=== PATIENT | female | born 1935 | race Caucasian/White ===

== ENCOUNTER 2018-11-18 16:36 | Emergency (ER) | payer MEDICARE ==
[~2018-11-18] VITALS: Ht 160 cm; Wt 81.6 kg
--- NOTE | 2018-11-18 16:40 | NUR ---
CHANCE FROM HOME FOR GLF; LT BUTTOCKS PAIN; PT AAOX2-3, PT ON MONITOR, VSS, NAD NOTED, PENDING MD KIMBLE
[2018-11-18] MEDS ORDERED: IV NS 0.9% 500 ML BAG IV ONE (17:00)
[2018-11-18] MEDS ORDERED: ACETAMINOPHEN ES 500 MG TABLET PO ONE (17:00)
[2018-11-18 17:07] LABS: BASOPHILS # (AUTO) 0.1 /CMM (0.0-0.2); BASOPHILS % (AUTO) 0.7 % (0.0-2.0); EOSINOPHILS % (AUTO) 0.7 % (0.0-6.0); HEMATOCRIT 37 % (33-45); HEMOGLOBIN 12.2 g/dL (11.5-14.8); LYMPHOCYTES # (AUTO) 0.8 /CMM (0.8-4.8); LYMPHOCYTES % (AUTO) 10.1 % (20.0-44.0); MEAN CORPUSCULAR HGB CONC 33 g/dl (31.0-36.0); MEAN CORPUSCULAR VOLUME 93 fL (82-100); MONOCYTES # (AUTO) 0.7 /CMM (0.1-1.30); MONOCYTES % (AUTO) 8.8 % (2.0-12.0); NEUTROPHILS # (AUTO) 6.6 /CMM (1.8-8.9); NEUTROPHILS % (AUTO) 79.7 % (43.0-81.0); PLATELET COUNT (AUTO) 229 /CMM (150-450); RED BLOOD CELL COUNT(AUTO) 4.01 MIL/uL (4.0-5.2); WHITE BLOOD COUNT (AUTO) 8.3 K/uL (4.3-11.0)
[2018-11-18] MEDS ORDERED: ACETAMINOPHEN ES 500 MG TABLET ONE (17:11)
[2018-11-18 17:16] LABS: CALCIUM, SERUM 8.7 mg/dL (8.5-10.1); CARBON DIOXIDE 25 mmol/L (21-32); CHLORIDE 103 mmol/L (98-107); CREATININE 1.1 mg/dL (0.6-1.3); GLUCOSE 113 mg/dL (74-106); POTASSIUM 4.1 mmol/L (3.5-5.1); SODIUM SERUM 137 mmol/L (136-145); UREA NITROGEN, BLOOD 43 mg/dL (7-18)
[2018-11-18] MEDS ORDERED: IV NS 0.9% 1,000 ML BAG IV ONE (18:30)
--- NOTE | 2018-11-18 19:24 | NUR ---
REPROT GIVEN TO CHARMAINE OMER FOR STACEY
[2018-11-18 19:55] VITALS: BP 135/76
--- NOTE | 2018-11-18 19:59 | NUR ---
Patient discharged to home in stable condition. Written and verbal after care instructions given. Patient verbalizes understanding of instruction.IV removed. Catheter intact and site benign. Pressure and 4x4 applied to site. No bleeding noted. pt leaving with family via private car.
== END 2018-11-18 19:58 | disposition home or self-care (01) ==
LOC: ER 16:36
DX: S51.812A Laceration without foreign body of left forearm, initial encounter (principal); S70.02XA Contusion of left hip, initial encounter; E86.0 Dehydration; R51 Headache; E03.9 Hypothyroidism, unspecified; E78.5 Hyperlipidemia, unspecified; W01.0XXA Fall on same level from slipping, tripping and stumbling without subsequent striking against object, initial encounter; Y93.01 Activity, walking, marching and hiking; Y92.89 Other specified places as the place of occurrence of the external cause; Y99.8 Other external cause status
CPT/HCPCS: 36415; 70450; 71045; 73503; 80048; 85025; 93005; 96360; 96361; 99284; J7030; J7040; 73502

== ENCOUNTER 2022-10-23 19:08 | Inpatient (IN) | payer BC, MEDICARE ==
[~2022-10-23] VITALS: Ht 165.1 cm; Wt 82.6 kg
[2022-10-23 20:12] LABS: BASOPHILS % (AUTO) 0.1 % (0.0-2.0); HEMATOCRIT 42 % (33-45); HEMOGLOBIN 13.5 g/dL (11.5-14.8); LYMPHOCYTES # (AUTO) 0.5 K/uL (0.8-4.8); LYMPHOCYTES % (AUTO) 4.8 % (20.0-44.0); MEAN CORPUSCULAR HGB CONC 32 g/dl (31.0-36.0); MEAN CORPUSCULAR VOLUME 92 fL (82-100); MONOCYTES # (AUTO) 0.7 K/uL (0.1-1.30); MONOCYTES % (AUTO) 7.1 % (2.0-12.0); NEUTROPHILS # (AUTO) 9.2 K/uL (1.8-8.9); PLATELET COUNT (AUTO) 207 K/uL (150-450); RED BLOOD CELL COUNT(AUTO) 4.55 MIL/uL (4.0-5.2); WHITE BLOOD COUNT (AUTO) 10.5 K/uL (4.3-11.0)
[2022-10-23 21:41] LABS: BILIRUBIN,URINE NEGATIVE (NEGATIVE); COLOR,URINE YELLOW (YELLOW); LEUKOCYTE ESTERASE ,URINE NEGATIVE (NEGATIVE); NITRITE, URINE NEGATIVE (NEGATIVE); PH,URINE 5.5 (5.0-8.0); PROTEIN,URINE 2+ mg/dl (NEGATIVE); UGLUCOSE NEGATIVE (NEGATIVE); UROBILINOGEN,URINE 0.2 EU/dL (0.2)
[2022-10-23 22:17] LABS: ALANINE AMINOTRANSFERASE 26 U/L (12-78); ALKALINE PHOSPHATASE 93 U/L (46-116); ASPARTATE AMINOTRANSFERASE 47 U/L (15-37); BILIRUBIN,TOTAL 0.7 mg/dL (0.2-1.0); CARBON DIOXIDE 21 mmol/L (21-32); CHLORIDE 96 mmol/L (98-107); CREATININE 1.7 mg/dL (0.6-1.3); GLUCOSE 107 mg/dL (74-106); POTASSIUM 5.4 mmol/L (3.5-5.1); SODIUM SERUM 126 mmol/L (136-145); TOTAL PROTEIN, SERUM 7.6 g/dL (6.4-8.2); UREA NITROGEN, BLOOD 54 mg/dL (7-18)
[2022-10-23] MEDS ORDERED: Z GUARD REMEDY 4 OZ OINT TP PRN (22:30)
[2022-10-23] MEDS ORDERED: NA PHOS,M-B/NA PHOS,DI-BA 1 EA ENEMA RC PRN (22:30)
[2022-10-23] MEDS ORDERED: hydrALAZINE HCL IV 20 MG VIAL IV PRN (22:30)
[2022-10-23] MEDS ORDERED: ONDANSETRON HCL/PF 4 MG/2 ML VIAL IVP PRN (22:30)
[2022-10-23] MEDS ORDERED: CLONIDINE HCL 0.1 MG TABLET PO PRN (22:30)
[2022-10-23] MEDS ORDERED: MAGNESIUM HYDROXIDE 30 ML UDC PO PRN (22:30)
[2022-10-23] MEDS ORDERED: ACETAMINOPHEN 325 MG TABLET PO PRN (22:30)
[2022-10-23] MEDS ORDERED: MAG HYDROX/AL HYDROX/SIMETH 30 ML UDC PO PRN (22:30)
[2022-10-23 22:59] LABS: ALBUMIN 3.2 g/dL (3.4-5.0); BILIRUBIN,DIRECT 0.1 mg/dL (0.0-0.2); LIPASE 212 U/L (73-393)
[2022-10-23] MEDS ORDERED: SODIUM POLYSTYRENE SULFONATE 15 G/60 ML BOTTLE PO ONE (23:00)
[2022-10-23 23:12] LABS: BACTERIA,URINE Rare /HPF (None Seen); RBC,URINE 0-2 /HPF (0-2); SQUAMOUS EPITHELIAL CELL,UR Rare /HPF (None Seen); WBC,URINE 0-2 /HPF (0-3)
[2022-10-23 23:40] VITALS: BP 158/95
[2022-10-23] MEDS: IV NS 0.9% 1,000 ML IV PRN (23:58)
[2022-10-24] MEDS ORDERED: SODIUM POLYSTYRENE SULFONATE 15 G/60 ML BOTTLE ONE (01:37)
[2022-10-24] MEDS ORDERED: SODIUM POLYSTYRENE SULFONATE 15 G/60 ML BOTTLE PO ONE (02:00)
[2022-10-24 04:00] VITALS: BP 143/99
[2022-10-24 07:12] LABS: BASOPHILS % (AUTO) 0.2 % (0.0-2.0); EOSINOPHILS % (AUTO) 0.2 % (0.0-6.0); HEMATOCRIT 42 % (33-45); HEMOGLOBIN 13.3 g/dL (11.5-14.8); LYMPHOCYTES # (AUTO) 0.5 K/uL (0.8-4.8); LYMPHOCYTES % (AUTO) 4.8 % (20.0-44.0); MEAN CORPUSCULAR HGB CONC 32 g/dl (31.0-36.0); MEAN CORPUSCULAR VOLUME 93 fL (82-100); MONOCYTES # (AUTO) 1.1 K/uL (0.1-1.30); MONOCYTES % (AUTO) 10.7 % (2.0-12.0); NEUTROPHILS # (AUTO) 8.5 K/uL (1.8-8.9); NEUTROPHILS % (AUTO) 84.1 % (43.0-81.0); PLATELET COUNT (AUTO) 164 K/uL (150-450); RED BLOOD CELL COUNT(AUTO) 4.49 MIL/uL (4.0-5.2); WHITE BLOOD COUNT (AUTO) 10.1 K/uL (4.3-11.0)
[2022-10-24 07:15] LABS: CALCIUM, SERUM 8.4 mg/dL (8.5-10.1); CARBON DIOXIDE 20 mmol/L (21-32); CHLORIDE 100 mmol/L (98-107); CREATININE 1.3 mg/dL (0.6-1.3); GLUCOSE 107 mg/dL (74-106); POTASSIUM 4.4 mmol/L (3.5-5.1); SODIUM SERUM 130 mmol/L (136-145); UREA NITROGEN, BLOOD 47 mg/dL (7-18)
[2022-10-24 08:00] VITALS: BP 179/102
[2022-10-24] MEDS: CEFEPIME 2 GM in IV D5W 100 ML IV SCH (11:42)
[2022-10-24 12:00] VITALS: BP 155/89
[2022-10-24] MEDS ORDERED: BISACODYL SUPP (10 MG) 10 MG/SUPP.RECT SUPP.RECT RC ONE (12:00)
[2022-10-24] MEDS ORDERED: SENNOSIDES/DOCUSATE SODIUM 1 TAB TABLET PO PRN (12:00)
[2022-10-24] MEDS: DOCUSATE SODIUM 100 MG CAPSULE PO SCH ×2 (12:52→16:16)
[2022-10-24 16:00] VITALS: BP 141/76
[2022-10-24 20:00] VITALS: BP 154/76
[2022-10-25] VITALS: BP 104/50
[2022-10-25] MEDS: IV NS 0.9% 1,000 ML IV PRN ×2 (01:49→16:45)
[2022-10-25 04:00] VITALS: BP 114/62
[2022-10-25 06:45] LABS: EOSINOPHILS % (AUTO) 0.1 % (0.0-6.0); HEMATOCRIT 42 % (33-45); HEMOGLOBIN 13.2 g/dL (11.5-14.8); LYMPHOCYTES # (AUTO) 0.4 K/uL (0.8-4.8); LYMPHOCYTES % (AUTO) 2.9 % (20.0-44.0); MEAN CORPUSCULAR HGB CONC 32 g/dl (31.0-36.0); MEAN CORPUSCULAR VOLUME 94 fL (82-100); MONOCYTES # (AUTO) 1.1 K/uL (0.1-1.30); MONOCYTES % (AUTO) 8.9 % (2.0-12.0); NEUTROPHILS # (AUTO) 10.8 K/uL (1.8-8.9); NEUTROPHILS % (AUTO) 88.1 % (43.0-81.0); PLATELET COUNT (AUTO) 210 K/uL (150-450); RED BLOOD CELL COUNT(AUTO) 4.45 MIL/uL (4.0-5.2); WHITE BLOOD COUNT (AUTO) 12.3 K/uL (4.3-11.0)
[2022-10-25 07:11] LABS: CALCIUM, SERUM 7.8 mg/dL (8.5-10.1); CARBON DIOXIDE 20 mmol/L (21-32); CHLORIDE 103 mmol/L (98-107); CREATININE 1.2 mg/dL (0.6-1.3); GLUCOSE 106 mg/dL (74-106); POTASSIUM 3.6 mmol/L (3.5-5.1); SODIUM SERUM 132 mmol/L (136-145); UREA NITROGEN, BLOOD 46 mg/dL (7-18)
[2022-10-25 08:00] VITALS: BP 148/61
[2022-10-25] MEDS: CEFEPIME 2 GM in IV D5W 100 ML IV SCH (09:17)
[2022-10-25] MEDS: DOCUSATE SODIUM 100 MG CAPSULE PO SCH ×2 (09:17→16:45)
[2022-10-25] MEDS ORDERED: HOMEOPATHIC MEDS PO (14:59)
[2022-10-25 16:00] VITALS: BP 139/83
[2022-10-26] VITALS: BP 124/66
[2022-10-26 08:00] VITALS: BP 128/86
[2022-10-26] MEDS: DOCUSATE SODIUM 100 MG CAPSULE PO SCH (08:01)
[2022-10-26] MEDS: IV NS 0.9% 1,000 ML IV PRN (08:05)
[2022-10-26] MEDS: CEFEPIME 2 GM in IV D5W 100 ML IV SCH (09:52)
[2022-10-26] MEDS ORDERED: DOCU-141 PO (12:42)
== END 2022-10-26 16:00 | disposition home health service (06) | DRG 640 ==
LOC: ER 19:10 → TELE1 22:37 → MEDSG1 10-25 08:28
PROVIDERS: ADMIT Internal Medicine; ATTEND Nurse Practitioner Acute Care
DX: E87.1 Hypo-osmolality and hyponatremia (principal); E43 Unspecified severe protein-calorie malnutrition; N17.0 Acute kidney failure with tubular necrosis; G93.41 Metabolic encephalopathy; I48.20 Chronic atrial fibrillation, unspecified; D68.69 Other thrombophilia; N13.30 Unspecified hydronephrosis; E66.01 Morbid (severe) obesity due to excess calories; K52.9 Noninfective gastroenteritis and colitis, unspecified; E78.5 Hyperlipidemia, unspecified; E86.1 Hypovolemia; E87.5 Hyperkalemia; E88.09 Other disorders of plasma-protein metabolism, not elsewhere classified; Z88.0 Allergy status to penicillin; R33.9 Retention of urine, unspecified; K52.89 Other specified noninfective gastroenteritis and colitis; Z74.09 Other reduced mobility; K59.00 Constipation, unspecified; K44.9 Diaphragmatic hernia without obstruction or gangrene; R29.6 Repeated falls; R53.1 Weakness; G30.9 Alzheimer's disease, unspecified; F02.80 Dementia in other diseases classified elsewhere, unspecified severity, without behavioral disturbance, psychotic disturbance, mood disturbance, and anxiety; Z91.81 History of falling; Z68.30 Body mass index [BMI] 30.0-30.9, adult; I77.811 Abdominal aortic ectasia
CPT/HCPCS: 36415; 71045-TC; 80048-TC; 80076-TC; 81001; 83690-TC; 84484-TC; 85025-TC; 87081-TC; 93307-TC; 97110-TC; 97116-TC; 97530-TC; A4223; C9803; G0378; J0360; J0692; J7030; J7060

== ENCOUNTER 2023-09-24 20:29 | Inpatient (IN) | payer MEDICARE, OTHER ==
[~2023-09-24] VITALS: Ht 165.1 cm; Wt 90.3 kg
[~2023-09-24 20:29] MED LIST: DOCU-141 PO; HOMEOPATHIC MEDS PO
[2023-09-24 21:13] LABS: BASOPHILS % (AUTO) 0.4 % (0.0-2.0); EOSINOPHILS # (AUTO) 0.3 K/uL (0.0-0.7); HEMATOCRIT 34 % (33-45); HEMOGLOBIN 10.6 g/dL (11.5-14.8); LYMPHOCYTES % (AUTO) 11.7 % (20.0-44.0); MEAN CORPUSCULAR HEMOGLOBIN 26 PG (26.0-33.0); MEAN CORPUSCULAR HGB CONC 31 g/dl (31.0-36.0); MEAN CORPUSCULAR VOLUME 83 fL (82-100); MONOCYTES # (AUTO) 0.6 K/uL (0.1-1.30); MONOCYTES % (AUTO) 6.2 % (2.0-12.0); NEUTROPHILS % (AUTO) 78.7 % (43.0-81.0); PLATELET COUNT (AUTO) 332 K/uL (150-450); RED BLOOD CELL COUNT(AUTO) 4.11 MIL/uL (4.0-5.2); RED CELL DISTRIBUTION WIDTH 21.8 % (11.5-15.0); WHITE BLOOD COUNT (AUTO) 8.9 K/uL (4.3-11.0)
[2023-09-24 21:28] LABS: INR 1.09 (0.91-1.10); PARTIAL THROMBOPLASTIN TIME 26.4 SEC (24.3-34.3); PROTHROMBIN TIME 11.5 SECS (9.2-11.1)
[2023-09-24 21:47] LABS: ALANINE AMINOTRANSFERASE 34 U/L (12-78); ALKALINE PHOSPHATASE 277 U/L (46-116); ASPARTATE AMINOTRANSFERASE 35 U/L (15-37); BILIRUBIN,DIRECT 0.2 mg/dL (0.0-0.2); BILIRUBIN,TOTAL 0.3 mg/dL (0.2-1.0); CALCIUM, SERUM 8.6 mg/dL (8.5-10.1); CARBON DIOXIDE 29 mmol/L (21-32); CHLORIDE 102 mmol/L (98-107); CREATININE 0.8 mg/dL (0.6-1.3); GLUCOSE 109 mg/dL (74-106); POTASSIUM 5.3 mmol/L (3.5-5.1); SODIUM SERUM 138 mmol/L (136-145); TOTAL PROTEIN, SERUM 7.1 g/dL (6.4-8.2); UREA NITROGEN, BLOOD 56 mg/dL (7-18)
[2023-09-24 22:19] LABS: LACTIC ACID 1.4 mmol/L (0.4-2.0)
[2023-09-24] MEDS ORDERED: SODIUM POLYSTYRENE SULFONATE 15 G/60 ML BOTTLE ONE ×3 (22:27→22:29)
[2023-09-24 22:31] LABS: APPEARANCE,URINE SLIGHTLY CLOUDY (CLEAR); BILIRUBIN,URINE NEGATIVE (NEGATIVE); BLOOD, URINE 3+ Ery/uL (NEGATIVE); COLOR,URINE YELLOW (YELLOW); KETONES,URINE NEGATIVE (NEGATIVE); LEUKOCYTE ESTERASE ,URINE 3+ (NEGATIVE); NITRITE, URINE NEGATIVE (NEGATIVE); PROTEIN,URINE 2+ mg/dl (NEGATIVE); UGLUCOSE NEGATIVE (NEGATIVE)
[2023-09-24] MEDS: IV NS 0.9% 1,000 ML IV ONE (22:49)
[2023-09-24] MEDS: SODIUM POLYSTYRENE SULFONATE 15 G/60 ML BOTTLE PO ONE (22:49)
[2023-09-24 22:50] LABS: ADD URINE CULTURE YES; BACTERIA,URINE Few /HPF (None Seen); RBC,URINE TOO NUMEROUS TO COUN /HPF (0-2); WBC,URINE TOO NUMEROUS TO COUN /HPF (0-3)
[2023-09-25] MEDS ORDERED: ONDANSETRON HCL/PF 4 MG/2 ML VIAL IVP PRN
[2023-09-25] MEDS ORDERED: MAGNESIUM HYDROXIDE 30 ML UDC PO PRN
[2023-09-25] MEDS ORDERED: ZOLPIDEM TARTRATE 5 MG TABLET PO PRN
[2023-09-25] MEDS ORDERED: MAG HYDROX/AL HYDROX/SIMETH 30 ML UDC PO PRN
[2023-09-25 00:30] VITALS: BP 146/95; TEMP 97.5; O2SAT 96
[2023-09-25] MEDS ORDERED: VANCOMYCIN 500 MG VIAL ONE (01:00)
[2023-09-25] MEDS: FUROSEMIDE 40 MG/4 ML VIAL IV SCH ×2 (01:18→10:34)
[2023-09-25 01:31] VITALS: BP 146/95; TEMP 97.5; O2SAT 96
[2023-09-25] MEDS: VANCOMYCIN 1.5 GM in IV D5W 500 ML IV ONE (02:04)
[2023-09-25 04:00] VITALS: BP 139/96; TEMP 97.7; O2SAT 100
[2023-09-25 04:22] VITALS: BP 139/96; TEMP 97.7; O2SAT 100
[2023-09-25] MEDS: PANTOPRAZOLE 40 MG TABLET.DR PO SCH (07:30)
[2023-09-25] MEDS ORDERED: LACT-96 PO (07:45)
[2023-09-25] MEDS: ENOXAPARIN SODIUM 40 MG/0.4 ML DISP.SYRIN SQ SCH (08:42)
[2023-09-25 09:43] LABS: BASOPHILS # (AUTO) 0.1 K/uL (0.0-0.2); BASOPHILS % (AUTO) 0.6 % (0.0-2.0); EOSINOPHILS # (AUTO) 0.1 K/uL (0.0-0.7); EOSINOPHILS % (AUTO) 1.1 % (0.0-6.0); HEMATOCRIT 34 % (33-45); HEMOGLOBIN 10.2 g/dL (11.5-14.8); LYMPHOCYTES # (AUTO) 0.5 K/uL (0.8-4.8); LYMPHOCYTES % (AUTO) 4.9 % (20.0-44.0); MEAN CORPUSCULAR HEMOGLOBIN 25 PG (26.0-33.0); MEAN CORPUSCULAR HGB CONC 30 g/dl (31.0-36.0); MEAN CORPUSCULAR VOLUME 81 fL (82-100); MONOCYTES # (AUTO) 0.7 K/uL (0.1-1.30); NEUTROPHILS # (AUTO) 8.1 K/uL (1.8-8.9); NEUTROPHILS % (AUTO) 86.4 % (43.0-81.0); PLATELET COUNT (AUTO) 372 K/uL (150-450); RED BLOOD CELL COUNT(AUTO) 4.13 MIL/uL (4.0-5.2); RED CELL DISTRIBUTION WIDTH 21.2 % (11.5-15.0); WHITE BLOOD COUNT (AUTO) 9.4 K/uL (4.3-11.0)
[2023-09-25 09:59] LABS: CALCIUM, SERUM 8.6 mg/dL (8.5-10.1); CREATININE 0.9 mg/dL (0.6-1.3); MAGNESIUM 2.1 mg/dL (1.8-2.4); POTASSIUM 4.3 mmol/L (3.5-5.1)
[2023-09-25] MEDS ORDERED: POLY17PO4 GT (10:00)
[2023-09-25] MEDS ORDERED: POTA20TA83 GT (10:00)
[2023-09-25] MEDS ORDERED: MAGN400O6 GT (10:00)
[2023-09-25] MEDS ORDERED: ATOR80TA GT (10:00)
[2023-09-25] MEDS ORDERED: ASCO500T10 GT (10:00)
[2023-09-25] MEDS ORDERED: EPOE40009 SQ (10:00)
[2023-09-25] MEDS ORDERED: FERR325T23 GT (10:00)
[2023-09-25] MEDS ORDERED: APIX2.5T GT (10:00)
[2023-09-25] MEDS ORDERED: MIDO10TA GT (10:00)
[2023-09-25] MEDS ORDERED: IPRA3AMP22 IH (10:00)
[2023-09-25] MEDS ORDERED: BUME2TAB7 GT (10:00)
[2023-09-25] MEDS ORDERED: LEVO150T GT (10:00)
[2023-09-25] MEDS ORDERED: BISA10SU11 RC (10:00)
[2023-09-25] MEDS ORDERED: SENN-261 GT (10:00)
[2023-09-25] MEDS ORDERED: CHOL200059 GT (10:00)
[2023-09-25] MEDS ORDERED: ARGI1POW13 GT (10:00)
[2023-09-25] MEDS ORDERED: CHLO473M5 MM (10:00)
[2023-09-25] MEDS ORDERED: LEVE100S GT (10:00)
[2023-09-25] MEDS ORDERED: ACET-868 GT (10:00)
[2023-09-25] MEDS ORDERED: AMIN30LI2 GT (10:00)
[2023-09-25] MEDS ORDERED: LACT-96 GT (10:00)
[2023-09-25 10:10] LABS: THYROID STIMULATING HORMONE 3.267 uIU/mL (0.358-3.74)
[2023-09-25] MEDS: CEFEPIME HCL 2 GM in IV D5W 100 ML IV SCH (10:33)
[2023-09-25] MEDS: THERAHONEY GEL 1.5 OZ TUBE TP SCH (11:11)
[2023-09-25] MEDS ORDERED: MAGNESIUM HYDROXIDE 30 ML UDC GT PRN (12:00)
[2023-09-25] MEDS ORDERED: JEVITY 1.5 CAL LIQUID 1,000 ML BOTTLE GT SCH (12:00)
[2023-09-25] MEDS ORDERED: ACETAMINOPHEN 325 MG TABLET PO PRN ×2 (12:00)
[2023-09-25] MEDS ORDERED: BISACODYL SUPP (10 MG) 10 MG/SUPP.RECT SUPP.RECT RC PRN (12:00)
[2023-09-25] MEDS: NEPRO 1,000 ML BOTTLE GT SCH (12:03)
[2023-09-25] MEDS ORDERED: JEVITY 1.5 CAL LIQUID 1,000 ML BOTTLE GT PRN (12:17)
[2023-09-25] MEDS: LEVETIRACETAM SOL (5 ML) 100 MG/ML UDC GT SCH (13:34)
[2023-09-25] MEDS: LEVOTHYROXINE SODIUM 75 MCG TABLET GT SCH (13:34)
[2023-09-25] MEDS: FERROUS SULFATE (325 MG) 325 MG/TAB TABLET GT SCH (13:34)
[2023-09-25] MEDS: BUMETANIDE (1 MG) 1 MG TABLET GT SCH (13:45)
[2023-09-25] MEDS: MIDODRINE HCL (5MG) 5 MG TABLET GT SCH (13:45)
[2023-09-25] MEDS: CHLORHEXIDINE GLUCONATE 15 ML UDC MM SCH (13:49)
[2023-09-25] MEDS: ATORVASTATIN 40 MG TABLET GT SCH (13:54)
[2023-09-25] MEDS: PROSOURCE / PROSTAT (PYXIS) 30 ML UDC GT SCH (14:20)
[2023-09-25] MEDS: SENNOSIDES 8.6 MG TABLET GT SCH (16:33)
[2023-09-25] MEDS: APIXABAN 2.5 MG TABLET GT SCH (16:34)
[2023-09-25] MEDS: ARGININE/GLUTAMINE/CALCIUM BMB 1 EACH POWD.PACK GT SCH (17:45)
[2023-09-25 20:00] VITALS: BP 104/47; TEMP 98.6; O2SAT 99
[2023-09-26] VITALS: BP 109/55; TEMP 98.6; O2SAT 100
[2023-09-26] MEDS: VANCOMYCIN HCL 1.25 GM in IV D5W 250 ML IV SCH (01:07)
[2023-09-26 07:00] VITALS: BP 129/55; TEMP 99.3; O2SAT 99
[2023-09-26 08:12] LABS: BASOPHILS % (AUTO) 0.4 % (0.0-2.0); EOSINOPHILS # (AUTO) 0.3 K/uL (0.0-0.7); EOSINOPHILS % (AUTO) 2.9 % (0.0-6.0); HEMATOCRIT 33 % (33-45); LYMPHOCYTES # (AUTO) 0.5 K/uL (0.8-4.8); MEAN CORPUSCULAR HEMOGLOBIN 25 PG (26.0-33.0); MEAN CORPUSCULAR HGB CONC 30 g/dl (31.0-36.0); MEAN CORPUSCULAR VOLUME 81 fL (82-100); MONOCYTES # (AUTO) 0.9 K/uL (0.1-1.30); MONOCYTES % (AUTO) 10.1 % (2.0-12.0); NEUTROPHILS % (AUTO) 80.6 % (43.0-81.0); PLATELET COUNT (AUTO) 351 K/uL (150-450); RED BLOOD CELL COUNT(AUTO) 4.06 MIL/uL (4.0-5.2); RED CELL DISTRIBUTION WIDTH 21.4 % (11.5-15.0); WHITE BLOOD COUNT (AUTO) 8.7 K/uL (4.3-11.0)
[2023-09-26] MEDS: CHOLECALCIFEROL 1,000 UNIT TABLET (VIT D3) GT SCH (08:19)
[2023-09-26] MEDS: ASCORBIC ACID 500 MG TABLET GT SCH (08:20)
[2023-09-26 08:44] LABS: ALANINE AMINOTRANSFERASE 28 U/L (12-78); ALBUMIN 1.6 g/dL (3.4-5.0); ALKALINE PHOSPHATASE 251 U/L (46-116); ASPARTATE AMINOTRANSFERASE 28 U/L (15-37); BILIRUBIN,TOTAL 0.4 mg/dL (0.2-1.0); CALCIUM, SERUM 8.4 mg/dL (8.5-10.1); CARBON DIOXIDE 29 mmol/L (21-32); CHLORIDE 100 mmol/L (98-107); CREATININE 0.8 mg/dL (0.6-1.3); GLUCOSE 106 mg/dL (74-106); MAGNESIUM 2.3 mg/dL (1.8-2.4); PHOSPHORUS 3.9 mg/dL (2.5-4.9); POTASSIUM 4.1 mmol/L (3.5-5.1); SODIUM SERUM 138 mmol/L (136-145); TOTAL PROTEIN, SERUM 6.7 g/dL (6.4-8.2); UREA NITROGEN, BLOOD 54 mg/dL (7-18)
[2023-09-26 09:00] LABS: THYROID STIMULATING HORMONE 2.981 uIU/mL (0.358-3.74); URIC ACID 6.1 mg/dL (2.6-7.2)
[2023-09-26] MEDS ORDERED: CEFEPIME 1 GM in IV D5W 50 ML IV SCH (10:30)
[2023-09-26 12:00] VITALS: BP 128/79; TEMP 99.1; O2SAT 100
[2023-09-26 13:04] LABS: WBC, BODY FLUID 250 /cu. mm. (0-200)
[2023-09-26 13:13] LABS: TOTAL VOLUME,BODY FLUID 600 mL
[2023-09-26 13:23] LABS: APPEARANCE,SPUN,BODY FLUID CLEAR (CLEAR)
[2023-09-26 14:56] LABS: PROTEIN, BODY FLUID 2.2 G/DL
[2023-09-26 15:36] LABS: MACROPHAGES, BODY FLUID 15; MONOCYTES,BODY FLUID 3 %; POLYNUCLEAR, BODY FLUID 38 % (0-25)
[2023-09-26 16:18] VITALS: BP 115/69; TEMP 99.2; O2SAT 99
[2023-09-26] MEDS ORDERED: MAGNESIUM HYDROXIDE 30 ML UDC GT PRN (17:48)
[2023-09-26 20:49] VITALS: BP 139/70; TEMP 98.8; O2SAT 100
[2023-09-27] VITALS (7 sets, daily range): BP systolic 104–151; BP diastolic 48–79; TEMP 98.2–99.7; O2SAT 95–100
[2023-09-27] MEDS: PANTOPRAZOLE 40 MG/PACK PACK GT SCH (08:27)
[2023-09-27] MEDS: NEPRO 1,000 ML BOTTLE GT SCH (08:28)
[2023-09-27] MEDS: POLYETHYLENE GLYCOL 3350 17 GM POWD.PACK GT SCH (08:28)
[2023-09-27] MEDS: ACETAMINOPHEN 650 MG/20.3 ML UDC GT PRN (15:34)
[2023-09-27] MEDS: CEFEPIME 1 GM in IV D5W 50 ML IV SCH (20:46)
[2023-09-28] VITALS: BP 107/60; TEMP 98.7; O2SAT 98
[2023-09-28 04:00] VITALS: BP 101/54; TEMP 98.6; O2SAT 99
[2023-09-28 08:30] VITALS: BP 99/52; TEMP 99; O2SAT 97
[2023-09-28] MEDS: CEFTRIAXONE 1 G in IV D5W 50 ML IV SCH (09:10)
[2023-09-28] MEDS: SULFAMETH/TRIMETH 800/160 MG 1 UDTAB TABLET GT SCH (12:04)
[2023-09-28] MEDS: PROSOURCE / PROSTAT (PYXIS) 30 ML UDC GT SCH (12:08)
[2023-09-28 16:00] VITALS: BP 109/64; TEMP 99; O2SAT 97
[2023-09-28 20:00] VITALS: BP 99/67; TEMP 99; O2SAT 97
[2023-09-28] MEDS: NEPRO 1,000 ML BOTTLE GT PRN (21:10)
[2023-09-29] VITALS (7 sets, daily range): BP systolic 95–120; BP diastolic 40–78; TEMP 97.7–98.4; O2SAT 98–99
[2023-09-29] MEDS ORDERED: NEPRO 1,000 ML BOTTLE GT SCH (09:00)
[2023-09-30] VITALS: BP 117/76; TEMP 97.9; O2SAT 98
[2023-09-30 04:00] VITALS: BP 129/74; TEMP 97.9; O2SAT 98
[2023-09-30] MEDS ORDERED: ZOLPIDEM TARTRATE 5 MG TABLET GT PRN (06:43)
[2023-09-30 08:51] VITALS: BP 100/47; TEMP 97.9; O2SAT 99
[2023-09-30 20:00] VITALS: BP 116/65; TEMP 98.6; O2SAT 96
[2023-09-30 20:33] VITALS: BP 116/65; TEMP 98.6; O2SAT 96
[2023-10-01] VITALS (8 sets, daily range): BP systolic 101–152; BP diastolic 58–100; TEMP 97.7–99.5; O2SAT 94–99
[2023-10-01] MEDS: VANCOMYCIN 1 GM /D5W 250 ML PB IV ONE (08:08)
[2023-10-01 15:58] LABS: BASOPHILS % (AUTO) 0.5 % (0.0-2.0); EOSINOPHILS # (AUTO) 0.2 K/uL (0.0-0.7); EOSINOPHILS % (AUTO) 2.5 % (0.0-6.0); HEMATOCRIT 30 % (33-45); HEMOGLOBIN 8.9 g/dL (11.5-14.8); LYMPHOCYTES # (AUTO) 0.6 K/uL (0.8-4.8); LYMPHOCYTES % (AUTO) 6.3 % (20.0-44.0); MEAN CORPUSCULAR HEMOGLOBIN 24 PG (26.0-33.0); MEAN CORPUSCULAR HGB CONC 30 g/dl (31.0-36.0); MEAN CORPUSCULAR VOLUME 80 fL (82-100); MONOCYTES # (AUTO) 0.8 K/uL (0.1-1.30); MONOCYTES % (AUTO) 9.3 % (2.0-12.0); NEUTROPHILS # (AUTO) 7.3 K/uL (1.8-8.9); NEUTROPHILS % (AUTO) 81.4 % (43.0-81.0); PLATELET COUNT (AUTO) 310 K/uL (150-450); RED BLOOD CELL COUNT(AUTO) 3.71 MIL/uL (4.0-5.2); RED CELL DISTRIBUTION WIDTH 21.3 % (11.5-15.0)
[2023-10-01] MEDS: EPOETIN ALFA-EPBX 10,000 UNIT/ML VIAL SQ SCH (17:20)
[2023-10-02 00:55] VITALS: BP 129/81; TEMP 99.9; O2SAT 97
[2023-10-02 04:07] VITALS: BP 106/37; TEMP 99.3; O2SAT 97
[2023-10-02 14:59] VITALS: TEMP 99.9; O2SAT 98
[2023-10-02 16:00] VITALS: BP 149/51; TEMP 99.5; O2SAT 98
[2023-10-03 07:47] LABS: BASOPHILS % (AUTO) 0.6 % (0.0-2.0); EOSINOPHILS # (AUTO) 0.1 K/uL (0.0-0.7); EOSINOPHILS % (AUTO) 0.6 % (0.0-6.0); HEMATOCRIT 27 % (33-45); HEMOGLOBIN 8.3 g/dL (11.5-14.8); LYMPHOCYTES # (AUTO) 0.5 K/uL (0.8-4.8); LYMPHOCYTES % (AUTO) 5.6 % (20.0-44.0); MEAN CORPUSCULAR HEMOGLOBIN 25 PG (26.0-33.0); MEAN CORPUSCULAR HGB CONC 31 g/dl (31.0-36.0); MEAN CORPUSCULAR VOLUME 79 fL (82-100); MONOCYTES # (AUTO) 0.7 K/uL (0.1-1.30); NEUTROPHILS # (AUTO) 6.9 K/uL (1.8-8.9); NEUTROPHILS % (AUTO) 84.2 % (43.0-81.0); PLATELET COUNT (AUTO) 286 K/uL (150-450); RED BLOOD CELL COUNT(AUTO) 3.38 MIL/uL (4.0-5.2); RED CELL DISTRIBUTION WIDTH 21.1 % (11.5-15.0); WHITE BLOOD COUNT (AUTO) 8.1 K/uL (4.3-11.0)
[2023-10-03 07:56] LABS: INR 1.15 (0.91-1.10); PROTHROMBIN TIME 12.1 SECS (9.2-11.1)
[2023-10-03 08:23] VITALS: BP 90/50; TEMP 99.5; O2SAT 98
[2023-10-03 08:35] LABS: CREATININE 1.1 mg/dL (0.6-1.3); MAGNESIUM 2.6 mg/dL (1.8-2.4); PHOSPHORUS 2.4 mg/dL (2.5-4.9)
[2023-10-03 08:39] LABS: POTASSIUM 2.5 mmol/L (3.5-5.1)
[2023-10-03] MEDS: POTASSIUM CHLORIDE 20 MEQ TAB.PRT.SR PO SCH (09:39)
[2023-10-03 16:08] VITALS: BP 105/64; TEMP 100; O2SAT 97
[2023-10-03] MEDS: NEUTRA PHOS 1 POWD.PACKET NG ONE (16:19)
[2023-10-03 21:13] VITALS: BP 97/58; TEMP 99.9; O2SAT 98
[2023-10-04 00:18] VITALS: BP 125/77; TEMP 99.9; O2SAT 98
[2023-10-04 01:22] VITALS: TEMP 99.5
[2023-10-04 08:32] VITALS: BP 82/58; TEMP 98.7; O2SAT 96
[2023-10-04 12:00] VITALS: BP 123/56; TEMP 98; O2SAT 98
[2023-10-04 16:39] VITALS: BP 135/48; TEMP 99; O2SAT 97
[2023-10-04 20:00] VITALS: BP 136/94; TEMP 99.1; O2SAT 97
[2023-10-05] VITALS: BP 139/102; TEMP 98.8; O2SAT 97
[2023-10-05 04:00] VITALS: BP 126/82; TEMP 99.5; O2SAT 97
[2023-10-05 07:00] VITALS: BP 123/56; TEMP 98.8; O2SAT 99
[2023-10-05] MEDS ORDERED: MAG HYDROX/AL HYDROX/SIMETH 30 ML UDC GT PRN (07:50)
[2023-10-05 12:00] VITALS: BP 119/57; TEMP 98.7; O2SAT 97
[2023-10-05] MEDS: IPRATROPIUM NEB FS 0.5 MG/2.5 ML AMPUL.NEB NEB SCH (13:47)
[2023-10-05] MEDS: ALBUTEROL HALF STRENGTH 1.25 MG/3 ML VIAL.NEB NEB SCH (13:47)
[2023-10-05 16:00] VITALS: BP 108/78; TEMP 98.9; O2SAT 98
[2023-10-05 20:00] VITALS: BP 93/53; TEMP 98.6; O2SAT 97
[2023-10-06 00:13] VITALS: BP 107/66; TEMP 98.4; O2SAT 98
[2023-10-06 05:07] VITALS: BP 113/45; TEMP 97.9; O2SAT 99
[2023-10-06 06:30] LABS: BASOPHILS # (AUTO) 0.1 K/uL (0.0-0.2); BASOPHILS % (AUTO) 0.4 % (0.0-2.0); EOSINOPHILS # (AUTO) 0.1 K/uL (0.0-0.7); EOSINOPHILS % (AUTO) 0.6 % (0.0-6.0); HEMATOCRIT 31 % (33-45); HEMOGLOBIN 9.1 g/dL (11.5-14.8); LYMPHOCYTES # (AUTO) 0.6 K/uL (0.8-4.8); LYMPHOCYTES % (AUTO) 4.4 % (20.0-44.0); MEAN CORPUSCULAR HEMOGLOBIN 24 PG (26.0-33.0); MEAN CORPUSCULAR HGB CONC 29 g/dl (31.0-36.0); MEAN CORPUSCULAR VOLUME 80 fL (82-100); MONOCYTES # (AUTO) 0.4 K/uL (0.1-1.30); MONOCYTES % (AUTO) 2.7 % (2.0-12.0); NEUTROPHILS # (AUTO) 13.2 K/uL (1.8-8.9); NEUTROPHILS % (AUTO) 91.9 % (43.0-81.0); PLATELET COUNT (AUTO) 327 K/uL (150-450); RED BLOOD CELL COUNT(AUTO) 3.89 MIL/uL (4.0-5.2); RED CELL DISTRIBUTION WIDTH 21.5 % (11.5-15.0); WHITE BLOOD COUNT (AUTO) 14.3 K/uL (4.3-11.0)
[2023-10-06 07:00] LABS: CALCIUM, SERUM 8.9 mg/dL (8.5-10.1); MAGNESIUM 2.4 mg/dL (1.8-2.4); PHOSPHORUS 2.4 mg/dL (2.5-4.9); POTASSIUM 3.1 mmol/L (3.5-5.1)
[2023-10-06 07:30] VITALS: BP 107/45; TEMP 99; O2SAT 96
[2023-10-06 08:00] VITALS: BP 107/45; TEMP 99; O2SAT 96
[2023-10-06] MEDS: POTASSIUM CHLORIDE 20 MEQ POWDER PACKET NG SCH (11:20)
[2023-10-06 13:00] VITALS: BP 113/74; TEMP 99; O2SAT 100
[2023-10-06] MEDS: NEUTRA PHOS 1 POWD.PACKET NG ONE (16:23)
[2023-10-06] MEDS ORDERED: CEFTAZIDIME 2 G in IV D5W 100 ML IV SCH (16:30)
[2023-10-06] MEDS: ACETAMINOPHEN 650 MG/SUPP.RECT RC PRN (17:12)
[2023-10-06 20:00] VITALS: BP 92/48; TEMP 97.3; O2SAT 100
[2023-10-06] MEDS: CEFTAZIDIME 1 G in IV D5W 50 ML IV SCH (20:27)
[2023-10-07] VITALS (7 sets, daily range): BP systolic 97–113; BP diastolic 49–83; TEMP 97.6–99.3; O2SAT 97–100
[2023-10-07 07:17] LABS: BASOPHILS % (AUTO) 0.2 % (0.0-2.0); EOSINOPHILS # (AUTO) 0.4 K/uL (0.0-0.7); EOSINOPHILS % (AUTO) 3.4 % (0.0-6.0); HEMATOCRIT 33 % (33-45); HEMOGLOBIN 9.3 g/dL (11.5-14.8); LYMPHOCYTES # (AUTO) 0.6 K/uL (0.8-4.8); LYMPHOCYTES % (AUTO) 6.1 % (20.0-44.0); MEAN CORPUSCULAR HEMOGLOBIN 24 PG (26.0-33.0); MEAN CORPUSCULAR HGB CONC 29 g/dl (31.0-36.0); MEAN CORPUSCULAR VOLUME 84 fL (82-100); MONOCYTES # (AUTO) 0.4 K/uL (0.1-1.30); MONOCYTES % (AUTO) 3.8 % (2.0-12.0); NEUTROPHILS # (AUTO) 9.1 K/uL (1.8-8.9); NEUTROPHILS % (AUTO) 86.5 % (43.0-81.0); PLATELET COUNT (AUTO) 298 K/uL (150-450); RED BLOOD CELL COUNT(AUTO) 3.86 MIL/uL (4.0-5.2); RED CELL DISTRIBUTION WIDTH 21.6 % (11.5-15.0); WHITE BLOOD COUNT (AUTO) 10.6 K/uL (4.3-11.0)
[2023-10-07 07:34] LABS: CALCIUM, SERUM 9.2 mg/dL (8.5-10.1); MAGNESIUM 2.8 mg/dL (1.8-2.4); PHOSPHORUS 2.8 mg/dL (2.5-4.9); POTASSIUM 3.2 mmol/L (3.5-5.1)
[2023-10-07] MEDS: IV D5W 1,000 ML IV ONE (08:30)
[2023-10-07] MEDS: POTASSIUM CHLORIDE 20 MEQ POWDER PACKET NG SCH (10:45)
[2023-10-07 11:07] LABS: INR 1.1 (0.91-1.10); PROTHROMBIN TIME 11.6 SECS (9.2-11.1)
[2023-10-08] VITALS: BP 100/80; TEMP 98; O2SAT 100
[2023-10-08 04:00] VITALS: BP 115/58; TEMP 98.2; O2SAT 100
[2023-10-08 08:00] VITALS: BP 110/80; TEMP 98.6; O2SAT 100
[2023-10-08 12:00] VITALS: BP 127/69; TEMP 98.4; O2SAT 98
[2023-10-08 16:00] VITALS: BP 141/86; TEMP 99.1; O2SAT 100
[2023-10-08 20:00] VITALS: BP 98/51; TEMP 98.6; O2SAT 100
[2023-10-09 00:34] VITALS: BP 118/76; TEMP 98.6; O2SAT 100
[2023-10-09 04:00] VITALS: BP 95/57; TEMP 98.8; O2SAT 100
[2023-10-09 07:50] LABS: BASOPHILS % (AUTO) 0.4 % (0.0-2.0); EOSINOPHILS # (AUTO) 0.2 K/uL (0.0-0.7); EOSINOPHILS % (AUTO) 3.3 % (0.0-6.0); HEMATOCRIT 28 % (33-45); HEMOGLOBIN 8.4 g/dL (11.5-14.8); LYMPHOCYTES # (AUTO) 0.5 K/uL (0.8-4.8); LYMPHOCYTES % (AUTO) 6.9 % (20.0-44.0); MEAN CORPUSCULAR HEMOGLOBIN 24 PG (26.0-33.0); MEAN CORPUSCULAR HGB CONC 30 g/dl (31.0-36.0); MEAN CORPUSCULAR VOLUME 79 fL (82-100); MONOCYTES # (AUTO) 0.3 K/uL (0.1-1.30); MONOCYTES % (AUTO) 4.4 % (2.0-12.0); NEUTROPHILS # (AUTO) 6.3 K/uL (1.8-8.9); PLATELET COUNT (AUTO) 294 K/uL (150-450); RED BLOOD CELL COUNT(AUTO) 3.52 MIL/uL (4.0-5.2); RED CELL DISTRIBUTION WIDTH 21.1 % (11.5-15.0); WHITE BLOOD COUNT (AUTO) 7.4 K/uL (4.3-11.0)
[2023-10-09 08:00] VITALS: BP 101/65; TEMP 98.8; O2SAT 99
[2023-10-09 08:07] LABS: BILIRUBIN,TOTAL 0.3 mg/dL (0.2-1.0); CREATININE 0.9 mg/dL (0.6-1.3); MAGNESIUM 2.4 mg/dL (1.8-2.4); PHOSPHORUS 3.1 mg/dL (2.5-4.9); TOTAL PROTEIN, SERUM 6.4 g/dL (6.4-8.2)
[2023-10-09 08:15] LABS: ALBUMIN 1.4 g/dL (3.4-5.0); POTASSIUM 2.6 mmol/L (3.5-5.1)
[2023-10-09 12:00] VITALS: BP 113/56; TEMP 98.2; O2SAT 99
[2023-10-09 16:00] VITALS: BP 94/49; TEMP 98.1; O2SAT 99
[2023-10-09] MEDS: CLOTRIMAZOLE 1% 15 GM TUBE TP SCH (17:52)
[2023-10-09] MEDS ORDERED: POTASSIUM CHLORIDE 10 MEQ/50 ML PREMIXED IVPB FOR PERIPHERAL LINE IV SCH (19:00)
[2023-10-09] MEDS: POTASSIUM CL. PREMIX PERIPHER. 50 ML IV SCH (19:35)
[2023-10-09 20:00] VITALS: BP 97/54; TEMP 97.7; O2SAT 99
[2023-10-10] VITALS: BP 92/73; TEMP 97.7; O2SAT 100
[2023-10-10 07:03] LABS: BASOPHILS % (AUTO) 0.3 % (0.0-2.0); EOSINOPHILS # (AUTO) 0.3 K/uL (0.0-0.7); EOSINOPHILS % (AUTO) 4.2 % (0.0-6.0); HEMATOCRIT 28 % (33-45); HEMOGLOBIN 8.4 g/dL (11.5-14.8); LYMPHOCYTES # (AUTO) 0.5 K/uL (0.8-4.8); LYMPHOCYTES % (AUTO) 6.6 % (20.0-44.0); MEAN CORPUSCULAR HEMOGLOBIN 24 PG (26.0-33.0); MEAN CORPUSCULAR HGB CONC 30 g/dl (31.0-36.0); MEAN CORPUSCULAR VOLUME 79 fL (82-100); MONOCYTES # (AUTO) 0.4 K/uL (0.1-1.30); MONOCYTES % (AUTO) 5.3 % (2.0-12.0); NEUTROPHILS # (AUTO) 6.3 K/uL (1.8-8.9); NEUTROPHILS % (AUTO) 83.6 % (43.0-81.0); PLATELET COUNT (AUTO) 291 K/uL (150-450); RED BLOOD CELL COUNT(AUTO) 3.54 MIL/uL (4.0-5.2); WHITE BLOOD COUNT (AUTO) 7.6 K/uL (4.3-11.0)
[2023-10-10 07:13] LABS: BILIRUBIN,TOTAL 0.4 mg/dL (0.2-1.0); CALCIUM, SERUM 9.2 mg/dL (8.5-10.1); MAGNESIUM 2.3 mg/dL (1.8-2.4); PHOSPHORUS 3.1 mg/dL (2.5-4.9); POTASSIUM 3.1 mmol/L (3.5-5.1); TOTAL PROTEIN, SERUM 6.7 g/dL (6.4-8.2)
[2023-10-10 07:16] LABS: ALBUMIN 1.4 g/dL (3.4-5.0)
[2023-10-10 08:58] VITALS: BP 87/51; TEMP 98.2; O2SAT 98
[2023-10-10] MEDS: APIXABAN 2.5 MG TABLET PO SCH (09:00)
[2023-10-10] MEDS: POTASSIUM CHLORIDE 20 MEQ POWDER PACKET PO ONE (09:45)
[2023-10-10] MEDS: IV NS 0.9% 250 ML IV ONE (10:01)
[2023-10-10 11:53] VITALS: BP 89/31; TEMP 98.1; O2SAT 99
[2023-10-10] MEDS ORDERED: POTASSIUM CL. PREMIX PERIPHER. 50 ML IV SCH (12:30)
[2023-10-10 20:00] VITALS: BP 106/58; TEMP 99; O2SAT 100
[2023-10-11] VITALS: BP 126/62; TEMP 98.2; O2SAT 96
[2023-10-11 04:00] VITALS: BP 111/54; TEMP 98.6; O2SAT 100
[2023-10-11 07:12] LABS: BASOPHILS % (AUTO) 0.2 % (0.0-2.0); EOSINOPHILS # (AUTO) 0.3 K/uL (0.0-0.7); EOSINOPHILS % (AUTO) 3.8 % (0.0-6.0); HEMATOCRIT 30 % (33-45); HEMOGLOBIN 8.9 g/dL (11.5-14.8); LYMPHOCYTES # (AUTO) 0.7 K/uL (0.8-4.8); LYMPHOCYTES % (AUTO) 8.9 % (20.0-44.0); MEAN CORPUSCULAR HEMOGLOBIN 24 PG (26.0-33.0); MEAN CORPUSCULAR HGB CONC 30 g/dl (31.0-36.0); MEAN CORPUSCULAR VOLUME 79 fL (82-100); MONOCYTES # (AUTO) 0.4 K/uL (0.1-1.30); MONOCYTES % (AUTO) 6.1 % (2.0-12.0); NEUTROPHILS # (AUTO) 5.9 K/uL (1.8-8.9); PLATELET COUNT (AUTO) 311 K/uL (150-450); RED BLOOD CELL COUNT(AUTO) 3.74 MIL/uL (4.0-5.2); RED CELL DISTRIBUTION WIDTH 20.8 % (11.5-15.0); WHITE BLOOD COUNT (AUTO) 7.3 K/uL (4.3-11.0)
[2023-10-11 07:31] LABS: ALANINE AMINOTRANSFERASE 85 U/L (12-78); ALKALINE PHOSPHATASE 340 U/L (46-116); ASPARTATE AMINOTRANSFERASE 55 U/L (15-37); BILIRUBIN,TOTAL 0.3 mg/dL (0.2-1.0); CALCIUM, SERUM 9.4 mg/dL (8.5-10.1); CARBON DIOXIDE 36 mmol/L (21-32); CHLORIDE 106 mmol/L (98-107); CREATININE 0.8 mg/dL (0.6-1.3); GLUCOSE 101 mg/dL (74-106); MAGNESIUM 2.4 mg/dL (1.8-2.4); PHOSPHORUS 3.1 mg/dL (2.5-4.9); POTASSIUM 2.9 mmol/L (3.5-5.1); SODIUM SERUM 148 mmol/L (136-145)
[2023-10-11 07:49] LABS: ALBUMIN 1.4 g/dL (3.4-5.0); UREA NITROGEN, BLOOD 86 mg/dL (7-18)
[2023-10-11 08:39] VITALS: BP 127/77; TEMP 98.4; O2SAT 98
[2023-10-11] MEDS: Z GUARD REMEDY 4 OZ OINT TP PRN (08:40)
[2023-10-11] MEDS: POTASSIUM CHLORIDE 20 MEQ POWDER PACKET NG SCH (10:46)
[2023-10-11] MEDS: DAKINS QUARTER STRENGTH (0.125%) 480 ML BOTTLE TOP SCH (11:23)
[2023-10-11 12:26] VITALS: BP 124/69; TEMP 99.2; O2SAT 99
[2023-10-11 16:48] VITALS: BP 110/48; TEMP 99; O2SAT 100
[2023-10-11 20:00] VITALS: BP 84/58; TEMP 99; O2SAT 99
[2023-10-12] VITALS: BP_SYST 81; BP_SYST 82; BP_DIAS 33; BP_DIAS 40; TEMP 98.8; O2SAT 97
[2023-10-12 01:30] VITALS: BP 114/48; O2SAT 99
[2023-10-12 04:00] VITALS: BP 132/74; TEMP 98.6; O2SAT 100
[2023-10-12 07:12] LABS: BASOPHILS % (AUTO) 0.3 % (0.0-2.0); EOSINOPHILS # (AUTO) 0.3 K/uL (0.0-0.7); EOSINOPHILS % (AUTO) 3.3 % (0.0-6.0); HEMATOCRIT 29 % (33-45); HEMOGLOBIN 8.8 g/dL (11.5-14.8); LYMPHOCYTES # (AUTO) 0.8 K/uL (0.8-4.8); LYMPHOCYTES % (AUTO) 9.3 % (20.0-44.0); MEAN CORPUSCULAR HEMOGLOBIN 24 PG (26.0-33.0); MEAN CORPUSCULAR HGB CONC 30 g/dl (31.0-36.0); MEAN CORPUSCULAR VOLUME 79 fL (82-100); MONOCYTES # (AUTO) 0.6 K/uL (0.1-1.30); NEUTROPHILS # (AUTO) 6.8 K/uL (1.8-8.9); NEUTROPHILS % (AUTO) 80.1 % (43.0-81.0); PLATELET COUNT (AUTO) 262 K/uL (150-450); RED BLOOD CELL COUNT(AUTO) 3.69 MIL/uL (4.0-5.2); RED CELL DISTRIBUTION WIDTH 21.6 % (11.5-15.0); WHITE BLOOD COUNT (AUTO) 8.4 K/uL (4.3-11.0)
[2023-10-12 07:24] LABS: CALCIUM, SERUM 9.4 mg/dL (8.5-10.1); CREATININE 0.9 mg/dL (0.6-1.3); POTASSIUM 3.3 mmol/L (3.5-5.1)
[2023-10-12 08:00] VITALS: BP 116/42; TEMP 97.5; O2SAT 99
[2023-10-12] MEDS: POTASSIUM CHLORIDE 20 MEQ POWDER PACKET GT ONE (10:17)
[2023-10-12 16:00] VITALS: BP 114/40; TEMP 98.6; O2SAT 99
[2023-10-12 20:00] VITALS: BP 112/58; TEMP 97.5; O2SAT 100
[2023-10-13] VITALS: BP 96/44; TEMP 98.8; O2SAT 100
[2023-10-13 05:00] VITALS: BP 101/50; TEMP 97.7; O2SAT 100
[2023-10-13 07:00] VITALS: BP 101/54; TEMP 97.4; O2SAT 100
[2023-10-13 08:11] LABS: CALCIUM, SERUM 9.4 mg/dL (8.5-10.1); CREATININE 0.7 mg/dL (0.6-1.3); POTASSIUM 3.6 mmol/L (3.5-5.1)
[2023-10-13 12:00] VITALS: BP 112/56; TEMP 99; O2SAT 100
[2023-10-13 16:00] VITALS: BP 97/36; TEMP 99; O2SAT 100
[2023-10-13 21:31] VITALS: BP 101/42; TEMP 99.1; O2SAT 99
[2023-10-14 00:38] VITALS: BP 117/30; TEMP 99.1; O2SAT 100
[2023-10-14 05:14] VITALS: BP 92/38; TEMP 99; O2SAT 100
[2023-10-14 07:00] VITALS: BP 108/25; TEMP 99.3; O2SAT 100
[2023-10-14 07:45] LABS: BASOPHILS % (AUTO) 0.3 % (0.0-2.0); EOSINOPHILS # (AUTO) 0.2 K/uL (0.0-0.7); EOSINOPHILS % (AUTO) 2.6 % (0.0-6.0); HEMATOCRIT 30 % (33-45); HEMOGLOBIN 9.1 g/dL (11.5-14.8); LYMPHOCYTES # (AUTO) 0.8 K/uL (0.8-4.8); LYMPHOCYTES % (AUTO) 11.1 % (20.0-44.0); MEAN CORPUSCULAR HEMOGLOBIN 24 PG (26.0-33.0); MEAN CORPUSCULAR HGB CONC 31 g/dl (31.0-36.0); MEAN CORPUSCULAR VOLUME 77 fL (82-100); MONOCYTES # (AUTO) 0.5 K/uL (0.1-1.30); MONOCYTES % (AUTO) 7.2 % (2.0-12.0); NEUTROPHILS # (AUTO) 5.5 K/uL (1.8-8.9); NEUTROPHILS % (AUTO) 78.8 % (43.0-81.0); PLATELET COUNT (AUTO) 336 K/uL (150-450); RED BLOOD CELL COUNT(AUTO) 3.83 MIL/uL (4.0-5.2); RED CELL DISTRIBUTION WIDTH 21.2 % (11.5-15.0)
[2023-10-14 08:19] LABS: CALCIUM, SERUM 9.9 mg/dL (8.5-10.1); CHLORIDE 103 mmol/L (98-107); CREATININE 0.8 mg/dL (0.6-1.3); GLUCOSE 102 mg/dL (74-106)
[2023-10-14 08:28] LABS: CARBON DIOXIDE 33 mmol/L (21-32)
[2023-10-14 08:41] LABS: SODIUM SERUM 144 mmol/L (136-145)
[2023-10-14 08:54] LABS: POTASSIUM 2.5 mmol/L (3.5-5.1); UREA NITROGEN, BLOOD 89 mg/dL (7-18)
[2023-10-14] MEDS ORDERED: POTASSIUM CHLORIDE 20 MEQ POWDER PACKET GT SCH ×2 (09:30→10:30)
[2023-10-14] MEDS: POTASSIUM CHLORIDE 20 MEQ POWDER PACKET GT SCH (10:23)
[2023-10-14 11:30] VITALS: BP 127/33; TEMP 99.3; O2SAT 97
[2023-10-14 13:00] VITALS: BP 127/63
== END 2023-10-14 15:30 | disposition hospice, inpatient (51) | DRG 207 ==
LOC: ER 20:30 → TELE 23:38
PROVIDERS: ADMIT Student in an Organized Health Care Education/Training Program; ATTEND Internal Medicine
PROC: 5A1955Z Respiratory Ventilation, Greater than 96 Consecutive Hours (ICD-10-PCS; principal; 2023-09-24)
PROC: 05HY33Z Insertion of Infusion Device into Upper Vein, Percutaneous Approach (ICD-10-PCS; 2023-09-25)
PROC: 0W9B3ZZ Drainage of Left Pleural Cavity, Percutaneous Approach (ICD-10-PCS; 2023-10-09)
DX: J96.21 Acute and chronic respiratory failure with hypoxia (principal); A41.9 Sepsis, unspecified organism; J15.1 Pneumonia due to Pseudomonas; E43 Unspecified severe protein-calorie malnutrition; G93.41 Metabolic encephalopathy; L89.154 Pressure ulcer of sacral region, stage 4; I50.33 Acute on chronic diastolic (congestive) heart failure; R53.2 Functional quadriplegia; E87.0 Hyperosmolality and hypernatremia; Z99.11 Dependence on respirator [ventilator] status; N39.0 Urinary tract infection, site not specified; J90 Pleural effusion, not elsewhere classified; I13.0 Hypertensive heart and chronic kidney disease with heart failure and stage 1 through stage 4 chronic kidney disease, or unspecified chronic kidney disease; N17.9 Acute kidney failure, unspecified; D64.9 Anemia, unspecified; E06.3 Autoimmune thyroiditis; E78.5 Hyperlipidemia, unspecified; E87.5 Hyperkalemia; E88.09 Other disorders of plasma-protein metabolism, not elsewhere classified; I35.1 Nonrheumatic aortic (valve) insufficiency; I48.91 Unspecified atrial fibrillation; R13.10 Dysphagia, unspecified; R62.7 Adult failure to thrive; Z86.73 Personal history of transient ischemic attack (TIA), and cerebral infarction without residual deficits; Z88.0 Allergy status to penicillin; R31.9 Hematuria, unspecified; E03.9 Hypothyroidism, unspecified; K44.9 Diaphragmatic hernia without obstruction or gangrene; Z68.33 Body mass index [BMI] 33.0-33.9, adult; E66.9 Obesity, unspecified; R23.1 Pallor; N18.9 Chronic kidney disease, unspecified; Z51.5 Encounter for palliative care; Z66 Do not resuscitate
CPT/HCPCS: 31720; 36410; 36415; 71045-TC; 80048-TC; 80053-TC; 80076-TC; 81001; 83605-TC; 83735-TC; 84100-TC; 84443-TC; 84484-TC; 84550-TC; 85025-TC; 85610-TC; 85730-TC; 87040-TC; 87081-TC; 87086-TC; 87102-TC; 88108-TC; 88305-TC; 89051-TC; 93307-TC; 93930-TC; 93971-TC; 94002-TC; 94003-TC; 94667-TC; 94668-TC; 94760-TC; 94762-TC; 94799-TC; 99082-TC; A4223; A4623; A6403; A7526; G0378; J0692; J0696; J0713; J0885; J1650; J1940; J1953; J3370; J3371; J3480; J7030; J7050; J7060; J7070

== ENCOUNTER 2023-10-14 15:40 | Inpatient (IN) | payer OTHER ==
[~2023-10-14] VITALS: Ht 165.1 cm; Wt 90.3 kg
[~2023-10-14 15:40] MED LIST changes: +ACET-868 GT; +AMIN30LI2 GT; +APIX2.5T GT; +ARGI1POW13 GT; +ASCO500T10 GT; +ATOR80TA GT; +BISA10SU11 RC; +BUME2TAB7 GT; +CHLO473M5 MM; +CHOL200059 GT; +EPOE40009 SQ; +FERR325T23 GT; +IPRA3AMP22 IH; +LACT-96 GT; +LACT-96 PO; +LEVE100S GT; +LEVO150T GT; +MAGN400O6 GT; +MIDO10TA GT; +POLY17PO4 GT; +POTA20TA83 GT; +SENN-261 GT
[2023-10-14] MEDS: SCOPOLAMINE PATCH 1 MG/72HR TD SCH (17:07)
[2023-10-14] MEDS ORDERED: KEY,NONCONTROL,TO KEEP IN PYXI 1 EA MC ONE ×2 (17:13→21:08)
[2023-10-14] MEDS: LORAZEPAM INJ 2 MG/ML VIAL IVP PRN (17:37)
== END 2023-10-14 20:05 | DRG 951 ==
LOC: MED 15:40
PROVIDERS: ADMIT Internal Medicine; ATTEND Internal Medicine
DX: Z51.5 Encounter for palliative care (principal); L89.154 Pressure ulcer of sacral region, stage 4; J96.21 Acute and chronic respiratory failure with hypoxia; A41.9 Sepsis, unspecified organism; J15.1 Pneumonia due to Pseudomonas; E43 Unspecified severe protein-calorie malnutrition; G93.41 Metabolic encephalopathy; I50.33 Acute on chronic diastolic (congestive) heart failure; R53.2 Functional quadriplegia; E87.0 Hyperosmolality and hypernatremia; Z99.11 Dependence on respirator [ventilator] status; N39.0 Urinary tract infection, site not specified; J90 Pleural effusion, not elsewhere classified; I13.0 Hypertensive heart and chronic kidney disease with heart failure and stage 1 through stage 4 chronic kidney disease, or unspecified chronic kidney disease; N17.9 Acute kidney failure, unspecified; D64.9 Anemia, unspecified; E78.5 Hyperlipidemia, unspecified; E88.09 Other disorders of plasma-protein metabolism, not elsewhere classified; E03.9 Hypothyroidism, unspecified; I35.1 Nonrheumatic aortic (valve) insufficiency; I48.91 Unspecified atrial fibrillation; R13.10 Dysphagia, unspecified; R62.7 Adult failure to thrive; Z86.73 Personal history of transient ischemic attack (TIA), and cerebral infarction without residual deficits; Z88.0 Allergy status to penicillin; R31.9 Hematuria, unspecified; K44.9 Diaphragmatic hernia without obstruction or gangrene; Z68.33 Body mass index [BMI] 33.0-33.9, adult; E66.9 Obesity, unspecified; R23.1 Pallor; N18.9 Chronic kidney disease, unspecified; Z66 Do not resuscitate
CPT/HCPCS: 31720; 94760-TC; 94799-TC; A6403; G0378; J2060; J2274; J7060